=== PATIENT | male | born 1965 | race Caucasian/White ===

== ENCOUNTER 2021-03-18 18:51 | Emergency (ER) | payer SELFPAY ==
[~2021-03-18] VITALS: Ht 177.8 cm; Wt 63.0 kg
[2021-03-18] MEDS ORDERED: LORazepam 2 MG/ML, 1ML ONE (19:07)
[2021-03-18] MEDS ORDERED: KETOROLAC 30 MG/1 ML ONE (19:08)
[2021-03-18] MEDS ORDERED: KETOROLAC 30 MG/1 ML IM ONE (19:30)
[2021-03-18] MEDS ORDERED: LORazepam 2 MG/ML, 1ML IV ONE (19:30)
[2021-03-18] MEDS ORDERED: LORazepam 2 MG/ML, 1ML IM PRN (19:30)
[2021-03-18] MEDS ORDERED: KETOROLAC 30 MG/1 ML IVPush ONE (19:30)
[2021-03-18] MEDS ORDERED: PLEASE ENTER ALLERGIES MC SCH (20:00)
--- NOTE | 2021-03-18 20:57 | NUR ---
REPORT TO MURALI VEGA.
--- NOTE | 2021-03-18 20:57 | NUR ---
RECEIVED FROM MURALI GANT
--- NOTE | 2021-03-18 21:03 | NUR ---
PT RESTING ON GURNEY, DENIES NEEDS AT THIS TIME.
[2021-03-18 22:23] VITALS: BP 133/88
--- NOTE | 2021-03-18 22:35 | NUR ---
Patient given discharge instructions and they have confirmed that they understand the instructions. Patient ambulatory with steady gait and luggage. Bus pass given
== END 2021-03-18 22:33 | disposition home or self-care (01) ==
LOC: ED 22:10
DX: R09.1 Pleurisy (principal); F41.1 Generalized anxiety disorder; R94.31 Abnormal electrocardiogram [ECG] [EKG]; F17.210 Nicotine dependence, cigarettes, uncomplicated
CPT/HCPCS: 71045; 93005; 96374; 96375; 99284; J1885; J2060

== ENCOUNTER 2021-04-07 10:49 | Emergency (ER) | payer SELFPAY ==
[~2021-04-07] VITALS: Ht 177.8 cm; Wt 65.0 kg
[2021-04-07 10:59] VITALS: BP 124/89
--- NOTE | 2021-04-07 11:14 | NUR ---
voice coach note: Pt to room from lobby.
--- NOTE | 2021-04-07 11:24 | NUR ---
Mary Lou kent in ED - 04/07/21 at 1129 by JATIN PT HERE FOR C/O RIGHT UPPER BACK PAIN, DENIES SOB AT THIS TIME. PLACED ON CARDIAC MONITORS, FALL PRECAUTIONS IN PLACE.
--- NOTE | 2021-04-07 11:29 | NUR ---
PT HERE FOR C/O left UPPER BACK PAIN, DENIES SOB AT THIS TIME. PLACED ON CARDIAC MONITORS, FALL PRECAUTIONS IN PLACE.
[2021-04-07] MEDS ORDERED: KETOROLAC 60 MG/2 ML ONE (11:43)
[2021-04-07] MEDS ORDERED: HYDROcodone/APAP 5/325 TABLET ONE (11:43)
[2021-04-07] MEDS ORDERED: HYDROcodone/APAP 5/325 TABLET PO ONE (12:00)
[2021-04-07] MEDS ORDERED: KETOROLAC 30 MG/1 ML IM ONE (12:00)
== END 2021-04-07 12:34 | disposition home or self-care (01) ==
LOC: ED 11:00
DX: R09.1 Pleurisy (principal); R07.89 Other chest pain; R00.0 Tachycardia, unspecified; F17.200 Nicotine dependence, unspecified, uncomplicated
CPT/HCPCS: 71045; 93005; 96372; 99283; J1885